=== PATIENT | female | born 2005 | race Caucasian/White ===

== ENCOUNTER 2025-03-31 12:26 | Emergency (ER) | payer BC, SELFPAY ==
[2025-03-31 13:11] VITALS: BP 127/84; PULSE 79; RESP 18; TEMP 36.6; O2SAT 97; BMI 21.4
--- NOTE | 2025-03-31 14:10 | ED.GENADULT ---
HPI - General Adult General Date Seen: 03/31/25 Chief complaint: Epistaxis/Nosebleed Stated complaint: Nose bleed Time Seen by Provider: 03/31/25 13:39 History of Present Illness HPI narrative: Very pleasant 19-year-old female with history of anxiety (on medications, well controlled) and a history of occasional nose bleeds (but none bad enough to have a relationship with ENT or previous doctor visits) presenting to the ER today for epistaxis. She has had a little bit of nasal congestion lately but tested negative for COVID. This morning around 9 when she got up she started having nose bleeds from her left nostril. It was fairly brisk and dark red blood. It has been happening off and on for several hours. She has been trying to do things like resting, sitting forward, and holding pressure on the switch she part of her nose. When she hold pressure for about 10 minutes she can get the bleeding to stop but has recurred several times. She has never had a nose bleed that is been this recurrent before. She knew she needed to come to the ER. She is not lightheaded or presyncopal. No other unusual bleeding or bruising. No history of coagulopathy. She is not anticoagulated. Related Data Home Medications ?Medication ?Instructions ?Recorded ?Confirmed fluoxetine .ROUTE 03/31/25 Allergies Allergy/AdvReac Type Severity Reaction Status Date / Time No Known Drug Allergies Allergy Verified 03/31/25 13:10 [facility] Social History Smoking Status: Never smoker How often do you have a drink containing alcohol: never AUDIT-C Alcohol total score: 0 Non-prescribed substance use: denies use Exam Narrative: Exam Narrative: Constitutional: Appears well-developed and well-nourished. Alert. Conversant. Non toxic. HENT: Head: Atraumatic. Nose: Externally nose normal. Right nares is normal save for a small amount of nonpurulent rhinorrhea. Left naris has a small amount of blood tinged around the opening but no active bleeding. Both not nostrils have a little bit of nonpurulent rhinorrhea and a little bit of edema. No definite site of bleeding identified in the left nostril. After administration of Afrin and lidocaine with epi I am able to identify a site on the nasal septum inside the left naris that appears to have been recently bleeding. It is not actively bleeding. I cauterized it with silver nitrate. Patient tolerated this well. No pain. No recurrence of bleeding. Mouth/Throat: Oral mucosa is clear and moist. no trismus. Pharynx normal. Tonsils symmetric. No tonsillar enlargement, erythema, or exudate. Eyes: Conjunctivae normal. EOM normal. Pupils equal, round, and reactive to light. No scleral icterus. Neck: Normal range of motion. Neck supple. No tracheal deviation present. Cardiovascular: Normal rate, regular rhythm. No gallop. No friction rub. No murmur heard. Normal brisk distal capillary refill. Symmetric radial artery pulses Pulmonary/Chest: Effort normal. No stridor. No respiratory distress. No wheezes. No rales. No rhonchi . Musculoskeletal: RUE: Normal range of motion. No tenderness. No deformity LUE: Normal range of motion. No tenderness. No deformity RLE: Normal range of motion. No edema. No tenderness. No deformity LLE: Normal range of motion. No edema. No tenderness. No deformity. Neurological: Alert and oriented to person, place, and time. Normal strength. CN II-VII intact. No sensory deficit. GCS eye subscore is 4. GCS verbal subscore is 5. GCS motor subscore is 6. Normal coordination Skin: Skin is warm and dry. No rash noted. No pallor. Normal capillary refill. Psychiatric: Normal mood. Normal affect. Const: Vital Signs, click to edit/add: Vital Signs - 24 hr 03/31/25 13:11 Temperature 98 F Pulse Rate [Pulse Oximeter] 79 Respiratory Rate 18 Blood Pressure [Ri t Upper Arm] 127/84 Pulse Oximetry 97 Oxygen Delivery Me thod Room Air Course Vital Signs Vital signs: Initial Vital Signs Temperature 98 F 03/31/25 13:11 Temperature Source Temporal Artery Scan 03/31/25 13:11 Pulse Rate 79 03/31/25 13:11 Respiratory Rate 18 03/31/25 13:11 Blood Pressure 127/84 03/31/25 13:11 Blood Pressure Mean 98 03/31/25 13:11 Blood Pressure Position Sitting 03/31/25 13:11 Pulse Oximetry 97 03/31/25 13:11 Oxygen Delivery Method Room Air 03/31/25 13:11 Vital Signs Temperature 98 F 03/31/25 13:11 Pulse Rate 79 03/31/25 13:11 Respiratory Rate 18 03/31/25 13:11 Blood Pressure 127/84 03/31/25 13:11 Pulse Oximetry 97 03/31/25 13:11 Oxygen Delivery Method Room Air 03/31/25 13:11 Temperature 98 F 03/31/25 13:11 Pulse Rate 79 03/31/25 13:11 Respiratory Rate 18 03/31/25 13:11 Blood Pressure 127/84 03/31/25 13:11 Pulse Oximetry 97 03/31/25 13:11 Oxygen Delivery Method Room Air 03/31/25 13:11 Medical Decision Making MDM Narrative Medical decision making narrative: Very pleasant 19-year-old female presenting to the ER today with epistaxis present intermittently for several hours this morning. She has been able to get it temporarily stopped with direct pressure but it keeps recurring, prompting her visit to the ER. Fortunately she is hemodynamically stable and is not having symptoms of presyncope. At this point I do not think she needs hemoglobin monitoring, admission for serial hemoglobins, or immediate transfusion. She has no history of coagulopathy and is not anticoagulated. No other unusual bleeding or bruising to raise concern for new onset coagulopathy. She has had recent nasal congestion and with the dry cold weather, we suspect that was the trigger for her epistaxis. We were able to a cauterized that site of recent bleeding on her nasal septum which I cauterized here in the ER today. Subsequent she did well. No recurrence of bleeding. Passed ambulation trial. Discussed with the patient that at this point things look stable. Discussed epistaxis care and precautions for return to the ER. Patient agrees. Questions answered. Discharge Plan Discharge Clinical Impression: Epistaxis Patient Disposition: Home, Self-Care Condition: Stable Instructions: Nosebleed (ED) Additional Instructions: As we discussed, if you have more episodes of nose bleeding, please hold direct pressure for 10 minutes. If the bleeding persists after 10 minutes of direct pressure, please continue will to pressure and return to the ER. To help reduce the chance of recurrent bleeding, you can use nasal saline spray once or twice a day to help moisturize her nasal mucosa. You can also gently apply topical antibiotic ointment or Vaseline inside your nostril to help keep the mucosal surface moist. You can also use a humidifier in your bedroom at night to help increase the humidity. If you need recheck with ENT you can call the [facility] ENT clinic at [phone] to arrange an ER follow-up visit. Prescriptions: No Action fluoxetine .ROUTE Follow Up/Referrals: Provider,Not a Local [Primary Care Provider, Family Practice] Stand Alone Forms: [employer] Info Instructions
== END 2025-03-31 15:05 | disposition home or self-care (01) ==
PROVIDERS: Emergency Provider Emergency Medicine
DX: R04.0 Epistaxis (principal)
CPT/HCPCS: 99282; 99283